=== PATIENT | female | born 1960 | race Caucasian/White ===

== ENCOUNTER 2022-12-19 08:15 | Day surgery (SDC) | payer MEDICAID, SELFPAY ==
[2022-12-19] VITALS (11 sets, daily range): BP systolic 91–133; BP diastolic 48–89; PULSE 42–56; RESP 13–18; TEMP 36.1–36.7; O2SAT 93–98
--- NOTE | 2022-12-19 07:08 | DI.NM_ITS ---
Exam(s) NM SENTNODE INJ AND SCAN EXAM: NM SENTNODE INJ AND SCAN CLINICAL HISTORY: C50.919,LT BREAST CA, PRE LUMPECTOMY. TECHNIQUE: Injected Dose: 1 mCi Tc-99m filtered sulfur colloid. Injected subcutaneously by the surg yoav at 4 separate para areolar sites in the left breast. COMPARISON: No exams were available for comparison FINDINGS: There is intense uptake in the para areolar region of the administered sulfur colloid. There is a small focal area of increased uptake along the axilla consistent with a sentinel node. IMPRESSION: 1. [place] node uptake in the left axilla. DATA REPOSITORY:
--- NOTE | 2022-12-19 11:44 | W.SURGCON ---
Date of service: 12/19/22 Time of Service: 14:27 Assessment and Plan Assessment and plan (1) Breast cancer in female: Status: Acute Assessment and plan: 62-year-old woman with left?sided breast cancer. She is here for an lumpectomy and sentinel lymph node biopsy. Her nuclear radiotracer injection has been performed(see procedure note above for details). Overall plan: Left?sided lumpectomy and sentinel node biopsy History of Present Illness Narrative: 62-year-old woman has a left?sided breast cancer. She is here for her lumpectomy and sentinel lymph node biopsy today. She got her needle localization done this morning by radiology. She needs a nuclear?medicine radiotracer injection for lymphoscintigraphy and sentinel node biopsy. PFSH All Active Problems (Updated 12/19/22 @ 14:30 by Mckay Wheeler MD) Breast cancer in female (Acute) Idiopathic small fiber peripheral neuropathy (Chronic) Medical History (Updated 12/19/22 @ 14:30 by Mckay Wheeler MD) Breast cancer Chronic fatigue Depression Fibromyalgia IBS (irritable bowel syndrome) Migraine headache without aura Obstructive sleep apnea on CPAP Surgical History History of breast biopsy History of cholecystectomy Hx of LASIK Previous section Family History Mother Diabetes Reactive airway disease Breast cancer Father Diabetes Sister Metastatic breast cancer Reactive airway disease Sister Reactive airway disease Thyroid cancer Fibromyalgia Daughter Fibromyalgia Social History Smoking/Tobacco Use Status: Never Smoking risk assessment performed?: Yes Alcohol Intake: never Substance use type: does not use Household members: other 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 The left nipple was prepped in sterile fashion. In all 4 quadrants of the nipple a small wheal was made injecting the radiotracer. A total of 1 cc was injected. The patient tolerated the procedure well. Imaging to follow.
[2022-12-19] MEDS: Lactated Ringers 1,000 ML 30 ML IV (12:40)
--- NOTE | 2022-12-19 13:13 | ANES.PREOP_ITS ---
General Info Date of Service Date Performed: 12/19/22 Height: 5 ft 4.5 in Weight: 80.739 kg Body Mass Index (BMI): 30.0 Surgical Procedure: Operation Date: 12/19/22 13:55 Proposed Procedure Side Surgeon p Lumpectomy & [employer] Biopsy Left Mckay Wheeler MD Meds Allergies and Home Medications Allergies Allergy/AdvReac Type Severity Reaction Status Date / Time pregabalin [From Lyrica] Allergy Intermediate leg Verified 12/19/22 12:31 swelling codeine Allergy Mild NAUSEA/VOMI Verified 12/19/22 12:31 [From Tylenol-Codeine] TING house dust Allergy Mild Verified 12/19/22 12:31 oxycodone [From Percocet] Allergy Mild NAUSEA/VOMI Verified 12/19/22 12:31 TING bupropion [From Wellbutrin] AdvReac DRY MOUTH Verified 12/19/22 12:31 escitalopram [From Lexapro] AdvReac FATIGUE Verified 12/19/22 12:31 Home Medication Medication Instructions Recorded chlorzoxazone 500 mg tablet 500 mg PO BID 05/08/18 fluticasone propionate 50 1 spray intranasal DAILY 05/08/18 mcg/actuation nasal spray,suspension multivitamin 1 tab PO DAILY 05/08/18 sumatriptan succinate 50 mg tablet 25 mg PO BID PRN 05/08/18 lidocaine-prilocaine 2.5 %-2.5 % 1 applic topical HS #30 grams 09/08/19 topical cream acetaminophen 500 mg tablet 1,000 mg PO DAILY PRN 03/01/21 (Tylenol Extra Strength) ibuprofen 800 mg tablet 800 mg PO DAILY PRN pain #30 tabs 02/26/22 Current Visit Medications: Current Medications Generic Name Dose Route Start Last Admin Trade Name Freq PRN Reason Stop Dose Admin IV Miscellaneous Supplies 1 each 12/19/22 06:00 Iv Access IV 01/17/23 23:59 DIRECTED WILLY Sodium Chloride 0 ml 12/19/22 06:00 Normal Saline Flush 10 Ml Syr IV 01/17/23 23:59 PRN PRN Sodium Chloride 0 ml 12/19/22 06:00 Normal Saline 10 Ml Vial IJ 01/17/23 23:59 DIRECTED PRN Sterile Water 0 ml 12/19/22 06:00 Water,Injection,Sterile 10 Ml Vial IJ 01/17/23 23:59 DIRECTED PRN PFS Active Problems Active Problems: Problem Status Onset Code Idiopathic small fiber peripheral neuropathy G60.9 Medical History Medical History Breast cancer Chronic fatigue Depression Fibromyalgia IBS (irritable bowel syndrome) Migraine headache without aura Obstructive sleep apnea on CPAP Surgical History Surgical History History of breast biopsy History of cholecystectomy Hx of LASIK Previous section Tobacco Smoking/Tobacco Use Status: Never Alcohol Alcohol Intake: never Substance Use Substance use type: does not use Vital Signs and Lab Results Vital Signs Most Recent Vital Signs in EMR: Most Recent Vital Signs Temp Pulse Resp BP Pulse Ox 36.1 C L 56 L 18 133/81 98 12/19/22 12:16 12/19/22 12:16 12/19/22 12:16 12/19/22 12:16 12/19/22 12:16 Lab Results Blood Type / Crossmatch: No Data to Display Complete Blood Count: No Data to Display Complete Metabolic Panel: No Data to Display Liver Function Panel: No Data to Display Coagulation Panel: No Data to Display Cardiac Panel: No Data to Display Arterial Blood Gas: No Data to Display Venous Blood Gas: No Data to Display Pancreas Panel: No Data to Display Thyroid Panel: No Data to Display Infectious Disease: No Data to Display Blood Cultures: No Data to Display Toxicology Panel: No Data to Display Anesthesia Assessment and Plan Anesthesia History Personal History: No History of Anesthesia Complications Family History: No Family History of Anesthesia Complications Exercise Tolerance Exercise Tolerance: Metabolic Equivalents>4 Pertinent Negatives Pertinent Negatives: No Symptoms of GERD, No Major Cardiovascular Symptoms or Complaints, No Major Pulmonary Symptoms or Complaints and No History of CVA/TIA Cardiac & Pulmonary Exam Cardiac Exam: Normal S1/S2 Heart Sounds Pulmonary Exam: Clear Bilateral Breath Sounds Implantable Cardiac Device Does patient have a Pacemaker or an ICD?: No Airway Exam Known Difficult Airway: No Previous Airway Comments:: Uses CPAP machine at home Mallampati Class: 3 Mouth Opening: Normal (> 3cm) Thyromental Distance: Greater than 3 cm Neck Range of Motion: Full ROM and Other Neck Circumference: Thick Teeth Condition: Generalized Poor Dentition Airway Comments: 2 cervical discs herniated but shepherd full range of neck motion w/ limited pain ASA Classification ASA Score: ASA 2 Emergency Case?: No NPO Status NPO Status: NPO Clears >2 hours, Solids >8 hours Anesthesia Plan Resuscitation Status: Full Code Anesthesia Technique: General Anesthesia Airway Planned: Natural Airway Monitors Used: Standard Monitors
--- NOTE | 2022-12-19 15:30 | DI.MAMMO_ITS ---
Exam(s) MG MAMMO SPECIMEN EXAM: MG MAMMO SPECIMEN CLINICAL HISTORY: lumpectomy SN Bx. TECHNIQUE: COMPARISON: BREAST SCREEN TOMOSYNTHESIS BI from 10/19/2022 US US BREAST LIMITED from 10/25/2022 FINDINGS: Specimen radiograph is submitted for interpretation. Both the wire and biopsy marker clips are inclu ded within the specimen radiograph. The clip and adjacent nodular density are eccentrically located in the biopsy specimen. Impression: As above. Called by myself to the surgeon in the operating room.
--- NOTE | 2022-12-19 15:40 | BREAST_PTH ---
PATIENT: Daysi Alva LOC: [facility] U#:[id number] AGE/SX: 62/F ROOM: RE12/19/[address]: Mckay Wheeler : 1960 BED: DIS: 12/19/2022 SPEC #: [id number] RECD: 12/20/22 12:43 STATUS: LAVELLE HERRERA #: [id number] SUZETTE: 12/19/22 15:[address]: Mckay Wheeler DEPT: Surgical Specimen RECD BY: Krys Robert ENTERED: 12/20/22 12:48 SP TYPE: Breast OTHR DR: Kate Iniguez, PAUL Tissues: 1 - BREAST INCISION/EXCISION 2 - BREAST INCISION/EXCISION 3 - BREAST INCISION/EXCISION 4 - BREAST INCISION/EXCISION 5 - BREAST INCISION/EXCISION 6 - BREAST INCISION/EXCISION 7 - BREAST INCISION/EXCISION Procedures: IMMUNOPEROXIDASE STAIN GROSS AND MICRO LEVEL 5 Comments: [id number] (ALL SPECIMENS RADIOACTIVE)
[2022-12-19] MEDS: Bupivacaine LIPOSOME/PF 133 MG/10 ML VIAL IJ (16:28)
[2022-12-19] MEDS: Bupivacaine 0.25% Pres-Free 30 ML VIAL (16:28)
--- NOTE | 2022-12-19 16:32 | W.PM.OP ---
Date of service: 12/19/22 Time of Service: 16:33 Operative Note Operative Note Refer to Anesthesia Record Procedure Description: Procedures: 1. Left partial mastectomy 2. Left axillary sentinel lymph node biopsy Preoperative diagnosis: Invasive breast cancer Postoperative diagnosis: Invasive breast cancer Surgeon: Ana Lilia Wheeler Assist: Omar Anesthesia: General Anesthesiologist: Gagan Indication: 72-year-old woman with ER positive, MO negative, HER-2 negative invasive breast cancer. No clinical axillary involvement. She presents for lumpectomy and staging of the axilla. Findings: Tumor was excised through a transverse incision following needle localization. The sentinel lymph node was mapped on lymphoscintigraphy to the left axilla and was easily found and removed. Complications: None Estimated Blood Loss: Minimal Grafts or implants: No Specimens removed as follows: -Left breast tumor/partial mastectomy -2 long stitches oriented LATERAL, long + short stitch oriented ANTERIOR, 2 short stitches oriented SUPERIOR -Deep margin -Medial margin -Lateral margin -Superior margin -Inferior margin Procedure in detail: Written consent was obtained from the patient who was in agreement the risks the benefits and indications for the procedure. The patient was taken to the operating suite and given anesthesia and the site was prepped in sterile fashion. A timeout was performed. Abx were NOT indicated. We confirmed laterality. When we were all in agreement we began the procedure. Next we reprepped and draped the breast and axilla in standard sterile fashion. The patient had had needle localization performed. Local anesthetic was injected. A transverse incision was made directly over top of the known location of the tumor with a #15 blade. A combination of blunt and sharp dissection using electrocautery for hemostasis was performed and I cut down directly towards the tumor and the wire. Excellent retraction technique allowed me to identify the plane within normal breast tissue where it met the desmoplastic reactions of the tumor and at this point I circumferentially mobilized and cored out the tumor from all aspects using the wire to keep myself oriented. The specimen was excised in its entirety. Care and caution was taken to keep the specimen oriented and I placed suture markers as noted above. The specimen was then sent to radiology for x-ray confirmation of complete excision of the lesion including the clip that had been placed at time of biopsy. I then proceeded to take tissue from each of the 5 standard margins. These were sent permanent. I checked the cavity for hemostasis and it was found to be excellent. The surgical site was dry, hemostasis was excellent and I closed the wound in layers and placed Dermabond over top after receiving radiologist confirmation that the clip and lesion were present in the resected specimen. At this point I turned my attention to the axilla. Local anesthetic was injected. At the inferior aspect of the axillary hair, I made a curvilinear incision sharply with a fresh blade. A combination of blunt and sharp dissection was performed to just underneath the pectoralis minor muscle insertion where the level 2 lymph nodes reside. The gamma probe was used to identify the sentinel lymph node and a small, roughly 2 x 3 cm packet of tissue including this (gammacounter-positive)lymph node was excised. After excision, the gamma probe was reintroduced into the axilla and no further, significant radiotracer uptake was encountered. On the back table, the excised packet of lymph tissue was reexamined with the gamma probe and confirmed to be the sentinel node as it still had a very high count. Satisfied that I had my sentinel node and there were no other significantly radioactive nodes present, I finished the procedure by closing the axillary incision in layers. Dermabond was placed on top. The sponge, instrument and sharps count was correct x3 at the end of the procedure. The patient tolerated the procedure well and was taken to the PACU in hemodynamically stable condition.
[2022-12-19] MEDS: fentaNYL 100 MCG/2 ML VIAL IVP ×2 (16:50→17:02)
--- NOTE | 2022-12-19 16:53 | W.ANESPOSTOP ---
Postoperative Evaluation Date, Time and Location Date Performed: 12/19/22 Time Performed: 16:54 Patient Location: PACU Vital Signs Most Recent Imported Vital Signs: Most Recent Vital Signs Temp Pulse Resp BP Pulse Ox 36.7 C 48 L 18 91/59 L 95 12/19/22 16:44 12/19/22 16:44 12/19/22 16:44 12/19/22 16:44 12/19/22 16:44 Pain Score Most Recent Pain Score: Most Recent Pain Score Pain Level 0 12/19/22 12:16 Assessment Mental Status: Arousable with meaningful communication Airway and Respiratory Function: Patent airway with normal (patient baseline) respiratory exam Cardiovascular Function: Hemodynamically Stable Hydration Status: Adequately Hydrated Nausea & Vomiting: No Nausea or Vomiting Pain: Pt. Denies Any Pain Peripheral Nerve Block: Patient did not receive a nerve block
[2022-12-19] MEDS: Ketorolac 30 MG/ML VIAL IVP (17:15)
== END 2022-12-19 18:41 | disposition home or self-care (01) ==
LOC: SUR 16:46 → ICU 12-20 15:15 → SUR 12-20 15:15
PROVIDERS: PCP Nurse Practitioner Family; Visit Provider Student in an Organized Health Care Education/Training Program
PROC: (CPT 19302; principal; 2022-12-19 13:45)
DX: C50.912 Malignant neoplasm of unspecified site of left female breast (principal); R53.82 Chronic fatigue, unspecified; M79.7 Fibromyalgia; F32.A Depression, unspecified; G47.33 Obstructive sleep apnea (adult) (pediatric); Z17.0 Estrogen receptor positive status [ER+]
CPT/HCPCS: 19301; 38500; 77061; 77065; 78195; 88307; 88361; G0279; J1885; J2370; J2405; J2704; J3010

== ENCOUNTER 2023-07-16 02:35 | Outpatient (CLI) | payer MEDICAID, SELFPAY ==
[2023-07-16 12:11] LABS: Abs Immature Grans 0.01 10^3/uL (0.0-0.06); Absolute Basophil Count 0.06 10^3/uL (0.0-0.2); Absolute Eosinophil Count 0.07 10^3/uL (0.0-0.7); Absolute Lymphocyte Count 1.52 10^3/uL (1.2-3.4); Absolute Neutrophil Count 3.78 10^3/uL (1.2-6.7); Eosinophils % 1.2; HCT 40.9 % (36.0-46.0); HGB 13.9 g/dL (11.2-15.7); Immature Grans % 0.2; MCH 30.4 pg (27.0-33.0); MCV 90 fL (80-95); MPV 9.1 fL (8.0-11.0); Monocytes % 6.8; Neutrophils % 64.8; Platelet Count 239 10^3/uL (130-400); RBC 4.57 10^6/uL (3.93-5.22); RDW-SD 42.4 fL; WBC 5.84 10^3/uL (4.4-10.8)
[2023-07-16 12:30] LABS: ALT 69 U/L (14-59); AST 36 U/L (15-37); Albumin 3.8 g/dL (3.4-5.0); Alkaline Phosphatase 107 U/L (46-116); Anion Gap 6.9 mmol/L (3-11); BUN 17 mg/dL (7-18); Bilirubin, Total 0.6 mg/dL (0.2-1.0); CO2 28.1 mmol/L (21.0-32.0); CREATININE 0.8 mg/dL (0.55-1.02); Calcium 9.4 mg/dL (8.5-10.1); Chloride 107 mmol/L (98-107); Estimated GFR 82.74 (mL/min/1.73m2); Glucose 117 mg/dL (74-106); Potassium 3.8 mmol/L (3.5-5.1); Sodium 142 mmol/L (136-145); Total Protein 7.9 g/dL (6.4-8.2)
== END 2023-07-16 02:36 | disposition home or self-care (01) ==
LOC: LBO 02:35
PROVIDERS: PCP Nurse Practitioner Family; Visit Provider Internal Medicine Hematology & Oncology
DX: C50.412 Malignant neoplasm of upper-outer quadrant of left female breast (principal); Z17.0 Estrogen receptor positive status [ER+]
CPT/HCPCS: 36415; 80053; 85025